=== PATIENT | male | born 1960 | race Caucasian/White ===

== ENCOUNTER → 2017-04-16 | Outpatient (CLI) | payer BC ==
[~2017-04-16] MED LIST: BUPR150T6 PO; CYCL10TA2 PO; ESOM40CA PO; HYDR-2666 PO; LOSA50TA6 PO; MECL-51 PO; METF500T4 PO; OMEP20CA9 PO; SERT50TA8 PO; TAMS0.4C2 PO; TRAM-29 PO
--- NOTE | 2017-04-16 09:53 | KCIC ---
EXAM: Bilateral knees, 3 views. HISTORY: Pain. COMPARISON: None. FINDINGS: Frontal, lateral and oblique views of both knees are obtained. There is sclerosis within the right medial femoral condyle, the appearance of which favors avascular necrosis. There is no fracture, dislocation or subluxation. No significant effusion is seen. 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 No cortical collapse is seen. Electronically signed by: Rebeca Wilkerson MD (04/16/2017 9:50 AM)
== END | disposition home or self-care (01) ==
LOC: KCIC 09:17
PROVIDERS: ATTEND Family Medicine
DX: M25.561 Pain in right knee (principal); M25.562 Pain in left knee; I96 Gangrene, not elsewhere classified
CPT/HCPCS: 73562

== ENCOUNTER → 2017-04-30 | Outpatient (CLI) | payer BC ==
[~2017-04-30] MED LIST changes: -HYDR-2666 PO; +HYDR-2758 PO; -TRAM-29 PO; +TRAM-48 PO
--- NOTE | 2017-04-30 14:22 | KCIC ---
[facility] ART STUDY LOWER EXTREM SCARLET History: Claudication greater on the left, smoker, diabetes, hypertension Comparison: None. Findings: Ankle brachial indices were obtained. Right ARELIS was 1.07, left 1.01. Impression: 1. Ankle brachial indices are considered within normal limits bilaterally. Electronically signed by: Tha Lemons MD (04/30/2017 2:19 PM)
== END | disposition home or self-care (01) ==
LOC: KCIC US 12:52
PROVIDERS: ATTEND Orthopaedic Surgery Sports Medicine
DX: I73.9 Peripheral vascular disease, unspecified (principal); F17.200 Nicotine dependence, unspecified, uncomplicated; I10 Essential (primary) hypertension; E11.9 Type 2 diabetes mellitus without complications
CPT/HCPCS: 93922

== ENCOUNTER → 2017-08-17 | Outpatient (CLI) | payer BC ==
[~2017-08-17] MED LIST changes: +ATOR20TA58 PO; +IOHEXOL 180 MG/ML 10 ML VIAL. ONE; +methylPREDNISolone ACETATE 40 MG/ML VIAL. ONE; +methylPREDNISolone ACETATE 80 MG/ML VIAL. ONE
--- NOTE | 2017-08-17 11:55 | PAIN ---
DATE OF SERVICE: 08/17/2017 DIAGNOSES: 1. Cervical radiculopathy with cervical degenerative disk disease. 2. Lumbar radiculopathy with lumbar degenerative disk disease and post-lumbar laminectomy syndrome. HISTORY OF PRESENT ILLNESS: The patient is a 57-year-old male who returns for followup status post cervical epidural steroid injections x 2 in 09/2016. The patient did very well and reports about 90% improvement. Neck is still doing well. His main complaint is low back and left lower extremity pain. He has had some significant pain over the years. He has had 2 lumbar surgeries with fusion, with increasing pain now over the past few months in the low back and left lower extremity, mostly posterior gluteus, posterior thigh on the left side, posterior calf, with some numbness and tingling, burning, stabbing and becoming more constant. Worse with standing, walking, changing positions, but has been awakening him from sleep, almost every night over the past 2-3 weeks. The patient reports it has been getting worse with activity, better with sitting or lying down, but again waking up from sleep. The patient reports it is 7 on a scale of 10 at its worst, 6 on average, is about 4 at least, and is a 5 on a scale of 10 today. The patient reports no new motor or sensory deficits, no new bowel or bladder incontinence or other complaints. PAST MEDICAL HISTORY: Significant for type 2 diabetes, COPD, sleep apnea, hypertension, cigarette smoking, arthritis. PREVIOUS SURGERIES: Include laminectomy x 2, lumbar; bilateral shoulder surgery; and finger reattachment in the past. CURRENT MEDICATIONS: Updated and well-documented on the patient's chart. ALLERGIES: The patient has no known drug allergies. FAMILY HISTORY: Significant for no major medical problems he is aware of. SOCIAL HISTORY: The patient drinks about 2-3 alcoholic drinks a week on an average; smokes cigarettes, less than 1 pack a day for about 39 years. The patient is and lives with his spouse. No children at home, lives locally. REVIEW OF SYSTEMS: The patient's review of systems is positive for those items mentioned in history of present illness. All systems reviewed and otherwise negative. It is complete, full and well documented on the patient's chart. PHYSICAL EXAMINATION: VITAL SIGNS: Today, the patient's blood pressure is 157/91, pulse 56, respirations 18, temperature 98.1 degrees Fahrenheit. Height is 5 feet 11 inches, weight is 279 pounds. GENERAL: The patient is awake, alert, oriented, appropriate, has very pleasant demeanor. HEENT: Shows normocephalic, atraumatic. Extraocular movements are intact and symmetrical. Oral cavity shows mucous membranes moist and pink. Dentition is intact. NECK: Shows anterior throat supple without palpable lymphadenopathy noted. Swallow reflex is symmetrical. CHEST: Shows normal on inspection. Breath sounds are clear to auscultation bilaterally. HEART: Shows S1 and S2 clear. No murmurs auscultated. ABDOMEN: Obese, with soft, nontender, nondistended. No palpable organomegaly noted. No rebound or guarding demonstrated. BACK: Shows spine grossly in the midline. Well-healed surgical scar is noted in the lumbar distribution with some flattening of lumbar lordotic curvature. Cervical lordotic curvatures shows normal on inspection. With palpation, shows only very minimal tenderness in the inferior aspect of the cervical paraspinous musculature, otherwise is symmetrical. Full rotational motion of cervical spine is demonstrated without difficulty. Low back shows good rotation, both laterally as well as extension and flexion, with somewhat limited extension, but not secondary to pain. Forward flexion about 45 degrees without pain reported in any of these rotations. EXTREMITIES: Lower extremities showed deep tendon reflexes 1+ in the patellar and tendo calcaneus tendons, are equal. Motor exam is strong with 5/5 dorsiflexion, extension, quadriceps and hamstring flexion, and are symmetrical as well. Peripheral pulses are 1+ posterior tibial and dorsalis pedis pulses. No peripheral edema is noted. RECOMMENDATIONS: Options were discussed with the patient. The patient's old chart was reviewed, as his current medication regimen updated. Current review of systems updated today as well. We will proceed with a caudal approach of epidural steroid injection with fluoroscopic guidance today. Risks were again discussed including, but not limited to bleeding, infection, possibility of epidural hematoma, subsequent neurologic compromise, dural puncture, headaches, spinal cord and/or nerve damage, side effects of steroid medication and poor results regarding pain control. The patient understands and wishes to proceed. The patient will return to clinic in approximately 2 weeks for followup. He was counseled on return appointment, activity level and side effects to be aware of. DIAGNOSES: 1. Cervical radiculopathy with cervical degenerative disk disease. 2. Lumbar radiculopathy with lumbar degenerative disk disease and lumbar post-laminectomy syndrome. PROCEDURE: Caudal approach of epidural steroid injection using C-arm fluoroscopic guidance under sterile prep and drape using local anesthetic. Medication injected is a total of 120 mg Depo-Medrol plus 10 mL of preservative-free normal saline and 2 mL of Isovue for contrast. CONDITION AT DISCHARGE: Stable. The patient tolerated procedure well, had no complications. RAVINDER ARANDA MD DR: EYAL/salima JOB#: [id number] / [id number]
== END | disposition home or self-care (01) ==
LOC: PNCL 08:23
PROVIDERS: ATTEND Anesthesiology
DX: M51.16 Intervertebral disc disorders with radiculopathy, lumbar region (principal); M50.10 Cervical disc disorder with radiculopathy, unspecified cervical region; E11.9 Type 2 diabetes mellitus without complications; J44.9 Chronic obstructive pulmonary disease, unspecified; G47.30 Sleep apnea, unspecified; I10 Essential (primary) hypertension; F17.210 Nicotine dependence, cigarettes, uncomplicated; M19.90 Unspecified osteoarthritis, unspecified site
CPT/HCPCS: 62323; J1030; J1040

== ENCOUNTER → 2017-08-31 | Outpatient (CLI) | payer BC ==
--- NOTE | 2017-08-31 12:17 | PAIN ---
DATE OF SERVICE: 08/31/2017 PROGRESS NOTE FOR PAIN CLINIC DIAGNOSES: 1. Cervical radiculopathy with cervical degenerative disk disease. 2. Lumbar radiculopathy with lumbar degenerative disk disease and post-lumbar laminectomy syndrome. HISTORY OF PRESENT ILLNESS: The patient is a 57-year-old male who returns for followup status post caudal epidural steroid injection x 1. The patient reports only about 1-2 days of decreased pain by about 50% and the pain returned fairly quickly in the low back and left lower extremity. The patient reports it is a 6-7 on a scale of 10 at its worst, 4 at least and is 5 today. The patient reports shooting becoming more constant in the left low back, posterior gluteus, posterior thigh on the left side with some numbness in the posterior lateral left leg and the top of the foot and the anterior aspect. The patient reports no new motor or sensory deficits. This has been awakening him from sleep fairly often when he lies on his left side especially. No new motor or sensory deficits. No new bowel or bladder incontinence or other complaints. PHYSICAL EXAMINATION: VITAL SIGNS: Today, the patient's blood pressure 169/85, pulse 68, respirations are 18, temperature 98.3 degrees Fahrenheit, height is 5 feet 11 inches and weight is 276 pounds. GENERAL: The patient is awake, alert, oriented, appropriate and very pleasant demeanor. HEENT: Shows normocephalic and atraumatic. Extraocular movements are intact and symmetrical. Oral cavity shows mucous membranes moist and pink. Dentition is intact. NECK: Shows anterior throat supple without palpable lymphadenopathy noted. Swallow reflex is symmetrical. CHEST: Shows normal on inspection. Breath sounds clear to auscultation bilaterally. HEART: Shows S1 and S2 clear. ABDOMEN: Soft, nontender and nondistended. Obese but no rebound or guarding demonstrated. BACK: The patient's back shows spine grossly in the midline, some flattening noted of the lumbar lordotic curvature, a well-healed surgical scar in this region. Lumbar paraspinous musculature shows symmetrical on inspection, with palpation shows moderate tenderness bilaterally but only diffusely in the lower lumbar distribution without radiation. EXTREMITIES: Lower extremities showed deep tendon reflexes 1+ in the patellar and tendo-calcaneus tendons, are equal. Motor exam is approximately 5/5 with dorsiflexion, extension, quadriceps and hamstring flexion and equal and symmetrical. Options were discussed with the patient and the patient's old chart was reviewed as his current medication regimen updated. Current review of systems updated today as well. We will proceed today with a caudal approach epidural steroid injection with fluoroscopic guidance. Risks were again discussed including but not limited to bleeding, infection, possibility of epidural hematoma and subsequent neurologic compromise, dural puncture, headaches, spinal cord and/or nerve damage, side effects of steroid medication and poor results regarding pain control. The patient understands and wishes to proceed. The patient will return to clinic in approximately 2 weeks for followup, was counseled on return appointment, activity level and side effects to be aware of. DIAGNOSES: Lumbar radiculopathy with lumbar degenerative disk disease and post-lumbar laminectomy syndrome. PROCEDURE: Lumbar epidural steroid injection, caudal approach and using C-arm fluoroscopic guidance under sterile prep and drape using local anesthetic. MEDICATION INJECTED: A total of 120 mg Depo-Medrol plus 10 mL of preservative-free normal saline and 2 mL of Isovue for contrast. CONDITION AT DISCHARGE: Stable. The patient tolerated procedure well, had no complications. RAVINDER ARANDA MD DR: EYAL/salima JOB#: [id number] / [id number]
== END | disposition home or self-care (01) ==
LOC: PNCL 07:58
PROVIDERS: ATTEND Anesthesiology
DX: M51.16 Intervertebral disc disorders with radiculopathy, lumbar region (principal); M96.1 Postlaminectomy syndrome, not elsewhere classified; M50.30 Other cervical disc degeneration, unspecified cervical region
CPT/HCPCS: 62323; J1030; J1040

== ENCOUNTER → 2017-09-29 | Outpatient (CLI) | payer BC ==
[~2017-09-29] MED LIST changes: -IOHEXOL 180 MG/ML 10 ML VIAL. ONE; -methylPREDNISolone ACETATE 40 MG/ML VIAL. ONE; -methylPREDNISolone ACETATE 80 MG/ML VIAL. ONE
--- NOTE | 2017-09-29 11:50 | KCIC ---
FINGER(S) RIGHT History: Infection of finger Comparison: None. Findings: 3 views of the right hand with attention to the third digit are submitted. No aggressive bone destruction, acute fracture, or radiopaque foreign body is identified of the third digit of the right hand. Impression: 1. No acute osseous abnormality is identified. Electronically signed by: Tha Lemons MD (09/29/2017 11:47 AM) [id number]
== END | disposition home or self-care (01) ==
LOC: KCIC 08:30
PROVIDERS: ATTEND Family Medicine
DX: L08.89 Other specified local infections of the skin and subcutaneous tissue (principal)
CPT/HCPCS: 73140

== ENCOUNTER → 2017-10-15 | Outpatient (CLI) | payer BC ==
[~2017-10-15] MED LIST changes: +IOHEXOL 180 MG/ML 10 ML VIAL. ONE; +methylPREDNISolone ACETATE 40 MG/ML VIAL. ONE; +methylPREDNISolone ACETATE 80 MG/ML VIAL. ONE
--- NOTE | 2017-10-15 19:18 | PAIN ---
DATE OF SERVICE: 10/15/2017 DIAGNOSES: 1. Cervical radiculopathy with cervical degenerative disk disease. 2. Lumbar radiculopathy with lumbar degenerative disk disease and post-lumbar laminectomy syndrome. HISTORY OF PRESENT ILLNESS: The patient is a 57-year-old male who returns for followup status post caudal epidural steroid injection x 2. The patient reports about 70% improvement overall, but weaning fairly quickly, only lasting about a week or so. The patient reports pain is returning in the low back, bilateral lower extremities, radiating to posterior gluteus, posterior thighs, worse slightly on the left than the right with tingling, burning and constant pain. It is becoming more unbearable and more constant with shooting pain in the lower extremities, again bilaterally, left worse than right. The patient reports the pain is a 8 on a scale of 10 at its worst, 7 on average and a 5 at its least and is 7 today. The patient reports no new motor or sensory deficits, no new bowel or bladder incontinence. Worse with standing and walking, changing positions, bending or stooping. Better with sitting, better with lying down. It does not awaken him from sleep at night. He is sleeping about 8 hours at a time without difficulty. PHYSICAL EXAMINATION: VITAL SIGNS: Today, the patient's blood pressure 170/95, pulse 77, respirations 18, temperature 98.0 degrees Fahrenheit, height is 5 feet 11 inches, weight is 280 pounds. GENERAL: The patient is awake, alert, oriented, appropriate, very pleasant demeanor. HEENT: Head shows normocephalic, atraumatic. Extraocular movements are intact, symmetrical. Oral cavity: Mucous membranes moist and pink. Dentition is intact. NECK: Shows anterior throat supple without palpable lymphadenopathy noted. Swallow reflex is symmetrical. CHEST: Shows normal on inspection. Breath sounds clear to auscultation bilaterally. HEART: Shows S1, S2 clear. No murmurs auscultated. ABDOMEN: Obese, soft, nontender, nondistended. No palpable organomegaly is noted. No rebound or guarding demonstrated. BACK: Shows spine grossly in the midline. Slight exaggeration of thoracic kyphosis ____ flattening of lumbar lordotic curvature as well with well healed surgical scarring noted. Lumbar paraspinous muscle shows symmetrical on inspection, with palpation shows some [id number] tenderness with palpation bilaterally, but only diffusely in the low lumbar distribution without trigger points, without radiation. No tenderness over the sacrum or sacroiliac regions. EXTREMITIES: Lower extremities show deep tendon reflexes 1+ in the patellar and tendo calcaneus tendons. Motor exam is 5/5 with dorsiflexion, extension, quadriceps and hamstring flexion and equal. Peripheral pulses are 1+ posterior tibial. No peripheral edema is noted. Options were discussed with the patient. The patient's old chart was reviewed. His current medication regimen updated. Current review of systems updated today as well and we will proceed with a third in the series of caudal approach epidural steroid injection with fluoroscopic guidance. Risks were again discussed including, but not limited to bleeding, infection, possibility of epidural hematoma, subsequent neurologic compromise, dural puncture, headaches, spinal cord and/or nerve damage, side effects of steroid medication and poor results regarding pain control. The patient understands and wished to proceed. The patient will return to clinic in approximately 2 weeks for followup, was counseled as to return appointment, activity level and side effects to be aware of and we will see him. DIAGNOSIS: Lumbar radiculopathy with lumbar degenerative disk disease, post-lumbar laminectomy syndrome. PROCEDURE: Caudal approach epidural steroid injection under local anesthetic using sterile prep and drape with C-arm fluoroscopy. MEDICATION INJECTED: A total of 120 mg Depo-Medrol plus 10 mL preservative-free normal saline and 2 mL isovue for contrast. CONDITION AT DISCHARGE: Stable. The patient tolerated the procedure well, had no complications. RAVINDER ARANDA MD DR: EYAL/salima JOB#: [id number] / [id number]
== END | disposition home or self-care (01) ==
LOC: PNCL 08:01
PROVIDERS: ATTEND Anesthesiology
DX: M51.16 Intervertebral disc disorders with radiculopathy, lumbar region (principal); M96.1 Postlaminectomy syndrome, not elsewhere classified; M50.10 Cervical disc disorder with radiculopathy, unspecified cervical region
CPT/HCPCS: 62323; J1030; J1040

== ENCOUNTER → 2018-01-19 | Outpatient (CLI) | payer BC | END | disposition home or self-care (01) | LOC: MRI 11:09 | DX: M48.061 Spinal stenosis, lumbar region without neurogenic claudication (principal); M51.26 Other intervertebral disc displacement, lumbar region; E88.2 Lipomatosis, not elsewhere classified | CPT/HCPCS: 72148 ==

== ENCOUNTER → 2018-06-07 | Outpatient (CLI) | payer BC ==
[~2018-06-07] MED LIST changes: -ATOR20TA58 PO; -BUPR150T6 PO; -CYCL10TA2 PO; -ESOM40CA PO; -HYDR-2758 PO; +IOHEXOL 180 MG/ML 10 ML VIAL.; -IOHEXOL 180 MG/ML 10 ML VIAL. ONE; +LIDOCAINE 1% PF 2 ML VIAL.; -LOSA50TA6 PO; -MECL-51 PO; -METF500T4 PO; -OMEP20CA9 PO; -SERT50TA8 PO; -TAMS0.4C2 PO; -TRAM-48 PO; +methylPREDNISolone ACETATE 40 MG/ML VIAL.; -methylPREDNISolone ACETATE 40 MG/ML VIAL. ONE; +methylPREDNISolone ACETATE 80 MG/ML VIAL.; -methylPREDNISolone ACETATE 80 MG/ML VIAL. ONE
== END | disposition home or self-care (01) ==
LOC: PNCL 07:50
DX: M51.16 Intervertebral disc disorders with radiculopathy, lumbar region (principal); M48.061 Spinal stenosis, lumbar region without neurogenic claudication; M96.1 Postlaminectomy syndrome, not elsewhere classified; M50.10 Cervical disc disorder with radiculopathy, unspecified cervical region
CPT/HCPCS: 62323; J1030; J1040; Q9965

== ENCOUNTER → 2018-09-09 | Outpatient (CLI) | payer BC ==
[~2018-09-09] MED LIST changes: +ATOR20TA58 PO; +BUPR150T6 PO; +CYCL10TA2 PO; +ESOM40CA PO; +HYDR-2758 PO; -IOHEXOL 180 MG/ML 10 ML VIAL.; +IOHEXOL 180 MG/ML 10 ML VIAL. ONE; -LIDOCAINE 1% PF 2 ML VIAL.; +LIDOCAINE 1% PF 2 ML VIAL. ONE; +LOSA50TA7 PO; +MECL-51 PO; +METF500T16 PO; +OMEP20CA9 PO; +SERT50TA8 PO; +TAMS0.4C2 PO; +TRAM-48 PO; -methylPREDNISolone ACETATE 40 MG/ML VIAL.; +methylPREDNISolone ACETATE 40 MG/ML VIAL. ONE; -methylPREDNISolone ACETATE 80 MG/ML VIAL.; +methylPREDNISolone ACETATE 80 MG/ML VIAL. ONE
--- NOTE | 2018-09-09 22:40 | PAIN ---
DATE OF SERVICE: 09/09/2018 PROGRESS NOTE FOR PAIN CLINIC DIAGNOSES: 1. Cervical radiculopathy with cervical degenerative disk disease. 2. Lumbar radiculopathy with lumbar degenerative disk disease and post-lumbar laminectomy syndrome. HISTORY OF PRESENT ILLNESS: The patient is a 58-year-old male who return for followup status post caudal epidural steroid injection x 1 on 06/11/2018. The patient did well for a few weeks after this, but not nearly as well as he had done with previous injections. He did his neurosurgeon, Dr. Cj Tran, who did a new myelogram and he said the results of that is showing some narrowing at L3-L4 with somewhat L4-L5 also, disk protrusion on the left side L5-S1, but did not recommend any current surgical indications at this time, would like him to try more conservative measures for considering this. The patient returns complaining of pain in the low back, bilateral lower extremities, right greater than left, posterior gluteus, posterior thigh, posterior calves and lateral thigh on the right as well. The patient reports it is aching, sharp, tingling, burning, cramping, stabbing, becoming more constant, more unbearable with any weightbearing, standing, walking, changing positions; better at night or laying down. It does awaken him from sleep Occasionally. The patient reports the patient is 9 on a scale of 10 at its worst, 8 on an average, 7 at least and is 7 today. The patient reports no new motor or sensory deficits. No new bowel or bladder incontinence. PHYSICAL EXAMINATION: VITAL SIGNS: Blood pressure 172/102, pulse 67, respirations 18, temperature 98.1 degrees Fahrenheit. He weighs 277 pounds. GENERAL: The patient is awake, alert, oriented, appropriate, very pleasant demeanor. HEENT: Head is normocephalic, atraumatic. Extraocular movements intact and symmetrical. Oral cavity, mucous membranes moist and pink, dentition is intact. NECK: Anterior throat supple without palpable lymphadenopathy noted. Swallow reflex is symmetrical. CHEST: Normal on inspection. Breath sounds are clear to auscultation bilaterally. HEART: Shows S1, S2 clear. No murmurs auscultated. ABDOMEN: Obese, soft, nontender, nondistended, no palpable organomegaly is noted. No rebound or guarding demonstrated. BACK: Spine grossly in the midline. Normal-appearing thoracic kyphosis. Some minor flattening of lumbar lordotic curvature. Well-healed surgical scarring noted. Lumbar paraspinous motion shows symmetrical on inspection, on palpation it shows some moderate tenderness diffusely in the low lumbar distribution but only diffusely and equal bilaterally. The patient shows no sensory deficits with rotation of motion. No significant tenderness with extension, flexion right and left lateral rotation. EXTREMITIES: Lower extremity shows deep tendon reflexes 1+ in the patellar and tendo-calcaneus tendons. Motor is 5/5 with dorsiflexion, extension, quadriceps and hamstrings flexion and symmetrical. Peripheral pulses are 1+ in posterior tibia. No peripheral edema is noted bilaterally. Options were discussed with the patient. The patient's old chart was reviewed as well as his current medication regimen updated. Current review of systems updated today as well. We will proceed with a second in the series of lumbar epidural steroid injections today with fluoroscopic guidance. Risks were again discussed including, but not limited to bleeding, infection, possibility of epidural hematoma and subsequent neurologic compromise, dural puncture headache, spinal cord and/or nerve damage, side effects of steroid medication and poor results regarding pain control. The patient understands and wished to proceed. The patient will return to clinic in approximately 2 weeks for followup, was counseled as to return appointment, activity level and side effects to be aware of. DIAGNOSES: 1. Lumbar radiculopathy with lumbar degenerative disk disease. 2. Lumbar post laminectomy syndrome. PROCEDURE: Lumbar epidural steroid injection, translaminar approach, L5-S1 level using C-arm fluoroscopic guidance under sterile prep and drape using local anesthetic. MEDICATION INJECTED: A total of 120 mg Depo-Medrol plus 10 mL of preservative-free normal saline and 2 mL of Isovue for contrast. CONDITION AT DISCHARGE: Stable. The patient tolerated the procedure well and had no complications. RAVINDER ARANDA MD DR: EYAL/salima JOB#: [id number] / [id number]
== END | disposition home or self-care (01) ==
LOC: PNCL 07:33
PROVIDERS: ATTEND Anesthesiology
DX: M51.16 Intervertebral disc disorders with radiculopathy, lumbar region (principal); M96.1 Postlaminectomy syndrome, not elsewhere classified; M50.30 Other cervical disc degeneration, unspecified cervical region
CPT/HCPCS: 62323; J1030; J1040; Q9965

== ENCOUNTER → 2018-12-28 | Outpatient (CLI) | payer BC ==
[~2018-12-28] MED LIST changes: -HYDR-2758 PO; +HYDR-2761 PO; -LIDOCAINE 1% PF 2 ML VIAL. ONE; +LOSA-73 PO; -LOSA50TA7 PO
--- NOTE | 2018-12-28 08:59 | PAIN ---
DATE OF SERVICE: 12/28/2018 DIAGNOSES: Lumbar radiculopathy with lumbar degenerative disk disease and lumbar post-laminectomy syndrome. HISTORY OF PRESENT ILLNESS: The patient is a 58-year-old male who returns for followup status post lumbar epidural steroid injection x 2, most recently on 09/09/2018. The patient did very well with about a 75% improvement initially, now about 50-6% improvement, still doing well. The patient reports he was almost pain free for about a month and then in the past 3 months has been doing very well with about a 60% improvement overall. The patient reports still some pain in the lower extremities, right greater than left bilaterally, mostly the posterior gluteus, posterior thigh, radiating to posterior calves and feet. The patient reports it is aching, sharp, shooting, tingling, constant, becoming more noticeable, more severe. The patient reports the pain is 7 on a scale of 10 at its worst, 6 on average, 5 at its least and is a 5 today. The patient reports no new motor or sensory deficits, no new bowel or bladder incontinence, still significant pain in the low back and legs as noted. Again, the patient was increasing just walking, doing work activities, household activities with greater ease and comfort, traveling in a car, sleeping better at night, still does not awaken him from sleep, and he is doing much better. PHYSICAL EXAMINATION: VITAL SIGNS: The patient's blood pressure 167/98, pulse 64, respirations 16, temperature 98.2 degrees Fahrenheit, weight is 277 pounds. GENERAL: The patient is awake, alert, oriented, appropriate, very pleasant demeanor. HEENT: Head shows normocephalic, atraumatic. Extraocular movements are intact and symmetrical. Oral cavity: Mucous membranes moist and pink. Dentition is intact. NECK: Shows anterior throat supple without palpable lymphadenopathy noted. Swallow reflex symmetrical. CHEST: Shows normal on inspection. Breath sounds clear to auscultation bilaterally. HEART: Shows S1 and S2 clear. No murmurs auscultated. ABDOMEN: Soft, obese, nontender, nondistended. No palpable organomegaly is noted. No rebound or guarding demonstrated. BACK: The patient's back shows spine grossly in the midline. Slight exaggeration of thoracic kyphosis and minor flattening of lumbar lordotic curvature. Lumbar paraspinous muscle shows symmetrical on inspection, with palpation shows some moderate tenderness only diffusely in the low lumbar distribution bilaterally without radiation. He shows good rotational motion of lumbar spine, both laterally as well as extension and flexion without difficulty. EXTREMITIES: Lower extremities show deep tendon reflexes 1+ in the patellar and tendo-calcaneus tendons are equal. Motor exam is strong with 5/5 dorsiflexion, extension bilaterally. Peripheral pulses are 1+ posterior tibial. No peripheral edema is noted. Options were discussed with the patient. The patient's old chart was reviewed, as his current medication regimen updated. Current review of systems updated today as well. We will proceed with a third in the series of lumbar epidural steroid injection today with fluoroscopic guidance. Risks were again discussed including, but not limited to bleeding, infection, possibility of epidural hematoma, subsequent neurological compromise, dural puncture, headaches, spinal cord and/or nerve damage, side effects of steroid medication and poor results regarding pain control. The patient understands and wished to proceed. The patient to return to clinic in approximately 2 weeks for followup, was counseled on return appointment, activity level and side effects to be aware of. DIAGNOSES: Lumbar radiculopathy with lumbar degenerative disk disease, post-lumbar laminectomy syndrome. PROCEDURE: Lumbar epidural steroid injection, translaminar approach L5-S1 level using C-arm fluoroscopic guidance under sterile prep and drape using local anesthetic. MEDICATION INJECTED: A total of 120 mg Depo Medrol, plus 10 mL of preservative-free normal saline and 2 mL of Isovue for contrast. CONDITION AT DISCHARGE: Stable. The patient tolerated procedure well, had no complications. RAVINDER ARANDA MD DR: EYAL/salima JOB#: [id number] / [id number]
== END | disposition home or self-care (01) ==
LOC: PNCL 07:42
PROVIDERS: ATTEND Anesthesiology
DX: M51.16 Intervertebral disc disorders with radiculopathy, lumbar region (principal); M96.1 Postlaminectomy syndrome, not elsewhere classified
CPT/HCPCS: 62323; J1030; J1040; Q9965

== ENCOUNTER → 2019-02-09 | Outpatient (CLI) | payer BC ==
[~2019-02-09] MED LIST changes: +OMEP20CA10 PO; -OMEP20CA9 PO
--- NOTE | 2019-02-10 00:28 | PAIN ---
DATE OF SERVICE: 02/09/2019 DIAGNOSES: 1. Cervical radiculopathy with cervical degenerative disk disease. 2. Lumbar radiculopathy with lumbar degenerative disk disease, post-lumbar laminectomy syndrome. HISTORY OF PRESENT ILLNESS: The patient is a 58-year-old male who returns for followup status post lumbar epidural steroid injections, most recently on 12/28/2018. The patient did well with this initially about 50% improvement, but the pain has retuned now significantly in the low back, bilateral lower extremities, somewhat worse on the right than the left, posterior gluteus, posterior thighs, posterior calves, again worse on the right side. The patient reports it is worse with standing, walking, changing positions, better with sitting or lying down, does not awaken him from sleep frequently, but does occasionally. The patient reports the pain is 8 on a scale of 10 at its worst, 7 on average, 6 at its least and is a 7 today. The patient reports it is tingling, burning, stabbing, aching, tight, constant and radiating as described. The patient reports no new motor or sensory deficits, no new bowel or bladder incontinence. PHYSICAL EXAMINATION: VITAL SIGNS: The patient's blood pressure 141/81, pulse 84, respirations 20, temperature 98.2 degrees Fahrenheit, weight is 268 pounds. GENERAL: The patient is awake, alert, oriented, appropriate, very pleasant demeanor. HEENT: Head shows normocephalic, atraumatic. Extraocular movements are intact and symmetrical. Oral cavity: Mucous membranes moist and pink. Dentition is intact. NECK: Shows anterior throat supple without palpable lymphadenopathy noted. Swallow reflex symmetrical. CHEST: Shows normal on inspection. Breath sounds clear to auscultation bilaterally. HEART: Shows S1, S2 clear. No murmurs auscultated. ABDOMEN: Soft, obese, nontender, nondistended. No palpable organomegaly is noted. No rebound or guarding demonstrated. BACK: Shows spine grossly in the midline. Normal appearing thoracic kyphosis and lumbar lordotic curvature. Lumbar paraspinous muscle shows symmetrical on inspection. On palpation shows some moderate tenderness diffusely bilaterally. Well-healed surgical scarring is again noted. No radiation is demonstrated with palpation. EXTREMITIES: The patient's lower extremities showed deep tendon reflexes 1+ in the patellar and tendo-calcaneus tendons. Motor exam is strong with 5/5 dorsiflexion, extension, quadriceps and hamstring flexion and symmetrical as well. Peripheral pulses are 1+ posterior tibia. No peripheral edema is noted bilaterally. Options were discussed with the patient. The patient's old chart was reviewed as his current medication regimen updated. Current review of systems updated today as well. We will proceed with a first in this series of lumbar epidural steroid injection today with fluoroscopic guidance. Risks were again discussed including, but not limited to bleeding, infection, possibility of epidural hematoma, subsequent neurologic compromise, dural puncture, headaches, spinal cord and/or nerve damage, side effects of steroid medication and poor results regarding pain control. The patient understands and wished to proceed. The patient to return to clinic in approximately 2 weeks for followup. He was counseled as to return appointment, activity level and side effects to be aware of. DIAGNOSES: Lumbar radiculopathy with lumbar degenerative disk disease, post-lumbar laminectomy syndrome. PROCEDURE: Lumbar epidural steroid injection, translaminar approach at L5-S1 level using C-arm fluoroscopic guidance under sterile prep and drape using local anesthetic. MEDICATION INJECTED: A total of 120 mg Depo-Medrol plus 10 mL of preservative-free normal saline and 2 mL of contrast. CONDITION AT DISCHARGE: Stable. The patient tolerated the procedure well, had no complications. RAVINDER ARANDA MD DR: EYAL/salima JOB#: [id number] / [id number]
== END | disposition home or self-care (01) ==
LOC: PNCL 08:02
PROVIDERS: ATTEND Anesthesiology
DX: M51.16 Intervertebral disc disorders with radiculopathy, lumbar region (principal); M96.1 Postlaminectomy syndrome, not elsewhere classified; M50.10 Cervical disc disorder with radiculopathy, unspecified cervical region
CPT/HCPCS: 62323; J1030; J1040; Q9965

== ENCOUNTER → 2019-03-22 | Outpatient (CLI) | payer BC ==
--- NOTE | 2019-03-23 00:24 | PAIN ---
DATE OF SERVICE: 03/22/2019 PROGRESS NOTE FOR PAIN CLINIC DIAGNOSES: 1. Lumbar radiculopathy with lumbar degenerative disk disease, post-lumbar laminectomy syndrome. 2. Cervical radiculopathy with cervical degenerative disk disease. HISTORY OF PRESENT ILLNESS: The patient is a 59-year-old male who returns for followup status post lumbar epidural steroid injection x 1 on 02/09/2019. The patient reports did better initially, but overall the pain has only been educed at about 25%. Initially, the first week or so, it was about 50%-75% better in the low back and especially the right leg, but he is having pain returned in the low back, bilateral lower extremities, posterior gluteus, posterior thighs, posterior calves; worse on the right in the low back but described as tingling, burning, aching, dull, alternating with sharp pain, shooting pain in the lower extremities becoming more constant, more unbearable with activity. The patient reports it is better with sitting or lying down, does not awaken him from sleep at night but is worse with walking and standing, even prolonged sitting or traveling in a car. The patient reports his pain is a 10 on scale of 10 at its worst, 9 on average and 8 at its least over the past week and is an 8 today. The patient reports no new motor or sensory deficits and no new bowel or bladder incontinence or other complaints. PHYSICAL EXAMINATION: VITAL SIGNS: The patient's blood pressure is 146/81, pulse 67, respirations 18 and temperature 98.5 degrees Fahrenheit. Height is 5 feet 11 inches and weight is 267 pounds. GENERAL: The patient is awake, alert, oriented, appropriate and very pleasant demeanor. HEENT: Head shows normocephalic and atraumatic. Extraocular movements are intact and symmetrical. Oral cavity: Mucous membranes moist and pink. Dentition is intact. NECK: Shows anterior throat supple without palpable lymphadenopathy noted. Swallow reflex symmetrical. CHEST: Shows normal on inspection. Breath sounds clear to auscultation bilaterally. HEART: Shows S1 and S2 clear. No murmurs auscultated. ABDOMEN: Soft, nontender and nondistended. No palpable organomegaly is noted. No rebound or guarding demonstrated. BACK: Shows spine grossly in the midline. Normal appearing thoracic kyphosis. Some flattening of lumbar lordotic curvature with well-healed surgical scar noted. Lumbar paraspinous muscle shows symmetrical on inspection, with palpation shows some moderate tenderness diffusely bilaterally but only diffusely without radiation. The patient has good rotational motion of lumbar spine, both laterally as well as extension and flexion without significant difficulty or pain reported. EXTREMITIES: The patient's lower extremities show deep tendon reflexes at 1+ in the patellar and tendo-calcaneus tendons are equal. Motor exam is strong with 5/5 dorsiflexion, extension, quadriceps and hamstring flexion symmetrical. Peripheral pulses are 1+ posterior tibia. No peripheral edema is noted. Options were discussed with the patient. The patient's old chart was reviewed as well as his current medication regimen updated. Current review of systems updated today as well and we will proceed with the second in the series of lumbar epidural steroid injection today with fluoroscopic guidance. Risks were again discussed including, but not limited to bleeding, infection, possibility of epidural hematoma, subsequent neurological compromise, dural puncture, headaches, spinal cord and/or nerve damage, side effects of steroid medication and poor results regarding pain control. The patient understands and wished to proceed. The patient will return to the clinic in approximately 2 weeks for followup, was counseled as to return appointment, activity level and side effects to be aware of. DIAGNOSES: Lumbar radiculopathy with lumbar degenerative disk disease and post-lumbar laminectomy syndrome. PROCEDURE: Lumbar epidural steroid injection, translaminar approach at L5-S1 level using C-arm fluoroscopic guidance under sterile prep and drape using local anesthetic. MEDICATION INJECTED: A total of 120 mg Depo-Medrol plus 10 mL of preservative-free normal saline and 2 mL of contrast. CONDITION AT DISCHARGE: Stable. The patient tolerated the procedure well, had no complications. RAVINDER ARANDA MD DR: EYAL/salima JOB#: [id number] / [id number]
== END | disposition home or self-care (01) ==
LOC: PNCL 11:21
PROVIDERS: ATTEND Anesthesiology
DX: M51.16 Intervertebral disc disorders with radiculopathy, lumbar region (principal); M96.1 Postlaminectomy syndrome, not elsewhere classified; M50.10 Cervical disc disorder with radiculopathy, unspecified cervical region
CPT/HCPCS: 62323; J1030; J1040; Q9965

== ENCOUNTER → 2019-04-14 | Outpatient (CLI) | payer BC ==
[~2019-04-14] MED LIST changes: -IOHEXOL 180 MG/ML 10 ML VIAL. ONE; -methylPREDNISolone ACETATE 40 MG/ML VIAL. ONE; -methylPREDNISolone ACETATE 80 MG/ML VIAL. ONE
--- NOTE | 2019-04-14 09:07 | KCIC ---
MRI Lumbar Spine without contrast History: Lumbar radiculopathy, previous surgeries, chronic low back pain, bilateral extremity numbness Technique: Multiplanar, multi sequential noncontrast MR imaging was performed of the lumbar spine. Comparison: January 19, 2018 Findings: Lumbar vertebral body stature is maintained. There is grade 1 anterior spondylolisthesis L5-S1 somewhat increased. There is again more advanced degenerative disc disease greater posteriorly L5-S1, minimal degenerative disc disease at L3-4 mild disc desiccation L4-5 and L2-3. Conus terminates near T12-L1. There is no significant marrow edema. There is hemangioma of the right L4 vertebral body. There is degenerative endplate change L5-S1. L1-L2: Spinal canal and neural foramina are adequate, this level not included on the axial images. L2-L3: There is again left laminectomy defect. There is right greater than left facet hypertrophic change and prominence of posterior epidural fat. Spinal canal and neural foramina are adequate. L3-L4: There is again left laminectomy defect. There is again facet hypertrophic change. There is minimal disc osteophyte complex and bulge greater than previously, also very shallow broad extrusion extending slightly below the intervertebral disc space about 2 mm AP. There is indentation upon the ventral thecal sac somewhat greater in the far left lateral recess, increased mild to moderate narrowing of the far lateral recess with degree of contact of the descending left L4 nerve root, also overall mild narrowing of the far right lateral recess. Below the intervertebral disc space level, there is again [id number] narrowing of the spinal canal primarily from posteriorly by facet hypertrophic change. There is mild to moderate left and mild right neural foramina compromise in part from disc osteophyte complex in combination with facet degenerative change. L4-L5: There is again prominence of posterior epidural fat centrally and moderate facet hypertrophic change. There is negligible disc osteophyte complex. Spinal canal is not significantly narrowed. There is mild narrowing of the left neural foramen, also disc osteophyte complex near the extraforaminal left L4 nerve root without displacement. There is increased moderate narrowing of the right neural foramen primarily from posteriorly by facet in combination with a new 0.4 cm synovial cyst at the posterior superior margin of the distal neural foramen. L5-S1: There is again severe facet degenerative change. There is left laminectomy defect as seen previously. There is partial uncovering of the posterior aspect of the disc with a superimposed minimal disc osteophyte complex as seen previously. Spinal canal is overall adequate. There is again severe narrowing of the right neural foramen with contact of the exiting right L5 nerve root, also fairly severe narrowing of the left neural foramen with contact exiting left L5 nerve root. Impression: 1. Comparing with the January 2018 exam, there is increased moderate narrowing of the right L4-5 neural foramen in part by synovial cyst. There is again severe neural foramina compromise bilaterally at L5-S1. There is bhob-[id number] narrowing of the left L3-4 neural foramen, other minimal narrowing as stated. 2. There is increased mild to moderate narrowing of the far left lateral recess at L3-4, mild narrowing of the far right lateral recess at this level. There is now shallow broad extrusion extending slightly below the L3-4 intervertebral disc space. There is again nyzq-kl-cfzarmys spinal stenosis just below the L3-4 intervertebral disc space level from posteriorly by facet hypertrophic change and ligamentum flavum. 3. There is again grade 1 anterior spondylolisthesis L5-S1. There is degenerative disc disease greatest at L5-S1. Electronically signed by: Tha Lemons MD (04/14/2019 9:04 AM) [facility]
== END | disposition home or self-care (01) ==
LOC: KCIC MRI 08:12
PROVIDERS: ATTEND Family Medicine
DX: M48.061 Spinal stenosis, lumbar region without neurogenic claudication (principal); M71.38 Other bursal cyst, other site; M51.26 Other intervertebral disc displacement, lumbar region; M43.17 Spondylolisthesis, lumbosacral region; M51.17 Intervertebral disc disorders with radiculopathy, lumbosacral region
CPT/HCPCS: 72148

== ENCOUNTER → 2019-11-20 | Outpatient (CLI) | payer BC ==
[~2019-11-20] MED LIST changes: +IOHEXOL 240 MG/ML 50ML VIAL. PO ONE; +IOHEXOL 300 MG/ML 100ML VIAL. IV ONE; -OMEP20CA10 PO; +OMEP20CA16 PO
--- NOTE | 2019-11-20 12:50 | KCIC ---
EXAM: Cervical spine, 4 views. HISTORY: Pain. COMPARISON: None. FINDINGS: 4 views of the cervical spine are obtained. There is no listhesis. The vertebral bodies are normal in height. There is anterior endplate osteophytosis throughout the cervical spine. There is multilevel facet arthropathy. IMPRESSION: 1. No acute osseous finding. 2. Multilevel degenerative change. Electronically signed by: Rebeca Wilkerson MD (11/20/2019 12:47 PM) [facility]
--- NOTE | 2019-11-20 12:55 | KCIC ---
EXAM: Abdomen and pelvis CT with intravenous contrast. HISTORY: Generalized pain. TECHNIQUE: Computed tomographic images of the abdomen and pelvis were obtained following the administration of 100 cc Omnipaque 300 intravenous contrast. Multiplanar reformatting was performed. *One or more of the following individualized dose reduction techniques were utilized for this examination: 1. Automated exposure control. 2. Adjustment of the mA and/or kV according to patient size. 3. Use of iterative reconstruction technique. COMPARISON: None. FINDINGS: Evaluation of the lower thorax demonstrates lingular and right middle lobe atelectasis or scarring. There is a large calcified granuloma within the lateral right lower lobe. There is no infiltrate or pleural effusion. The heart is normal in size. There is hepatic steatosis and hepatomegaly. There is a suspected tiny cyst within the right hepatic lobe, too small to characterize. The gallbladder, pancreas, and adrenal glands are unremarkable. The spleen is mildly enlarged and contains a calcified granuloma. There is a tiny left lateral renal cortical cyst which is too small to characterize. There is no appendicitis. There is distal colonic diverticulosis without diverticulitis. There is no evidence of bowel obstruction. There is aortobiiliac atherosclerosis. There is increased fat within the inguinal canals. There is no suspicious osseous lesion. There is grade 1 anterolisthesis and advanced degenerative change at L5-S1. IMPRESSION: 1. Hepatomegaly and hepatic steatosis. 2. Mild splenomegaly. 3. Colonic diverticulosis. Electronically signed by: Rebeca Wilkerson MD (11/20/2019 12:52 PM) [facility]
== END | disposition home or self-care (01) ==
LOC: KCIC CT 09:58
PROVIDERS: ATTEND Nurse Practitioner Gerontology
DX: K57.30 Diverticulosis of large intestine without perforation or abscess without bleeding (principal); N28.1 Cyst of kidney, acquired; I70.8 Atherosclerosis of other arteries; J84.10 Pulmonary fibrosis, unspecified; K76.0 Fatty (change of) liver, not elsewhere classified; R16.0 Hepatomegaly, not elsewhere classified; R16.1 Splenomegaly, not elsewhere classified; M25.78 Osteophyte, vertebrae; M12.88 Other specific arthropathies, not elsewhere classified, other specified site; M47.812 Spondylosis without myelopathy or radiculopathy, cervical region; J44.9 Chronic obstructive pulmonary disease, unspecified; I10 Essential (primary) hypertension; F17.200 Nicotine dependence, unspecified, uncomplicated; E11.9 Type 2 diabetes mellitus without complications; Z79.84 Long term (current) use of oral hypoglycemic drugs; Z79.899 Other long term (current) drug therapy
CPT/HCPCS: 72040; 74177; 82565; Q9966; Q9967

== ENCOUNTER → 2019-12-07 | Outpatient (CLI) | payer BC ==
[~2019-12-07] MED LIST changes: -IOHEXOL 240 MG/ML 50ML VIAL. PO ONE; -IOHEXOL 300 MG/ML 100ML VIAL. IV ONE
--- NOTE | 2019-12-07 11:33 | KCIC ---
MRI of the cervical spine without contrast 12/07/2019 CLINICAL HISTORY: Neck pain with right arm pain. TECHNIQUE: Unenhanced T1-weighted, T2-weighted and inversion recovery sagittal and gradient echo and T2-weighted axial images of the cervical spine were obtained. FINDINGS: Comparison is made to radiographs of cervical spine dated 11/20/2019 Minimal lateral curvature of the cervical spine is seen convex to the left. There is straightening of the normal cervical lordosis. Degenerative signal changes are seen involving all of the disks of the cervical spine. Degenerative signal changes are seen within the marrow surrounding these discs. Loss of height of the C6-7 disc is noted. No area of abnormal signal intensity is seen involving the cervical spinal cord. At the C2-3 disc space there is a mild generalized disc bulge. Degenerative changes are seen involving the uncovertebral and facet joints bilaterally. These findings do not result in significant central spinal canal or neural foraminal stenosis. At the C3-4 disc space there is a mild to moderate generalized disc bulge. Degenerative changes are seen involving the uncovertebral and facet joints, right greater than left. These findings when combined do not result in significant central spinal canal stenosis. Mild to moderate right greater than left neural foraminal stenosis is seen. At the C4-5 disc space there is a mild generalized disc bulge. Superimposed on this disc bulge is a focal central disc protrusion. This measures 3 mm in AP diameter. Degenerative changes are seen involving the uncovertebral and facet joints, right greater than left. These findings do not result in significant central spinal canal stenosis. Mild right greater than left neural foraminal stenosis is seen. At the C5-6 disc space there is a mild generalized disc bulge. Degenerative changes are seen involving the uncovertebral and facet joints bilaterally. These findings do not result in significant central spinal canal or neural foraminal stenosis. At the C6-7 disc space there is a mild to moderate generalized disc bulge. This is eccentric to the right. These findings efface the anterior CSF without resulting in significant central spinal canal stenosis. Moderate to severe right greater than left neural foraminal stenosis is seen. At the C7-T1 disc space there is a minimal generalized disc bulge. Degenerative changes are seen involving the facet joints bilaterally. These findings do not result in significant central spinal canal or neural foraminal stenosis. IMPRESSION: Degenerative changes are seen throughout the cervical spine. These findings do not result in significant central spinal canal stenosis at any level. Mild to moderate right greater than left neural foraminal stenosis is seen at C3-4. Mild right greater than left neural foraminal stenosis is seen at C4-5. Moderate to severe right greater than left neural foraminal stenosis is seen at C6-7. Electronically signed by: Terrance Trevino MD (12/07/2019 11:30 AM) [facility]
== END | disposition home or self-care (01) ==
LOC: KCIC MRI 09:45
PROVIDERS: ATTEND Nurse Practitioner Gerontology
DX: M47.22 Other spondylosis with radiculopathy, cervical region (principal); M50.11 Cervical disc disorder with radiculopathy, high cervical region; M51.24 Other intervertebral disc displacement, thoracic region; M47.814 Spondylosis without myelopathy or radiculopathy, thoracic region; M48.02 Spinal stenosis, cervical region
CPT/HCPCS: 72141

== ENCOUNTER → 2019-12-20 | Outpatient (CLI) | payer BC ==
[~2019-12-20] MED LIST changes: +IOHEXOL 180 MG/ML 10 ML VIAL. ONE; +methylPREDNISolone ACETATE 40 MG/ML VIAL. ONE; +methylPREDNISolone ACETATE 80 MG/ML VIAL. ONE
--- NOTE | 2019-12-20 12:17 | PAIN ---
DATE OF SERVICE: 12/20/2019 PROGRESS NOTE FOR PAIN CLINIC DIAGNOSES: 1. Cervical radiculopathy with cervical degenerative disk disease and cervical spinal stenosis. 2. Lumbar radiculopathy with lumbar degenerative disk disease and lumbar post-laminectomy syndrome. HISTORY OF PRESENT ILLNESS: The patient is a 59-year-old male, who returns for followup status post lumbar epidural steroid injection and caudal injections, last seen in 01/2019. The patient did very well with the injections, but has had surgery in the lumbar spine since the last visit. The patient reports doing much better with his lumbar spine; however, his main complaint is neck and right upper extremity pain he had many years ago. The patient did have MRI scan of cervical spine which we reviewed with him today that is dated 12/07/2019 showing some significant severe right greater than left neural foraminal stenosis at the C6-C7 level, disk bulge throughout C4-C5, C5-C6 and C6-C7 with severe right greater than left neural foraminal stenosis at the C6-C7 level. The patient reports significant pain in the right upper extremity radiating into the hand and the thumb and first finger with numbness and tingling described as becoming more constant, aching, shooting, tight and dull in the neck as well. The patient reports it is worse with walking, using upper extremity, but has not had any motor loss or dropping of items with the right hand. The patient reports it awakens him from sleep occasionally, but most nights, it is better with lying down, worse with raising his right hand over his head at repetitive motions. The patient reports it is 7 on a scale of 10 at its worst, 7 on average, 6 at its least and is a 7 today. The patient reports no new motor or sensory deficits, no bowel or bladder incontinence. PHYSICAL EXAMINATION: VITAL SIGNS: The patient's blood pressure is 139/81, pulse 63, respirations 18, temperature is 98.2 degrees Fahrenheit, height is 5 feet 10 inches and weight is 272 pounds. GENERAL: The patient is awake, alert, oriented, appropriate, very pleasant demeanor. HEENT: Head shows normocephalic, atraumatic. Extraocular movements are intact and symmetrical. Oral cavity: Mucous membranes moist and pink; dentition is intact. NECK: Shows anterior throat supple without palpable lymphadenopathy noted. Swallow reflex symmetrical. CHEST: Shows normal on inspection. Breath sounds are clear bilaterally. HEART: Shows S1, S2 clear. No murmurs auscultated. ABDOMEN: Obese, soft, nontender, nondistended. BACK: Shows spine grossly in the midline, normal-appearing cervical lordotic curvature and thoracic kyphotic curvature, some moderate flattening of lumbar lordotic curvature. Well-healed surgical scarring noted. Cervical paraspinous musculature shows symmetrical on inspection, on palpation shows some moderate tenderness diffusely bilaterally, only diffusely without significant radiation. The patient has good rotational motion of cervical spine, both laterally as well as extension and flexion without significant pain reported. EXTREMITIES: Upper extremities show deep tendon reflexes 1+ in the biceps and triceps tendons. Motor exam is strong with materials tech strength rated at 5/5 as is biceps and triceps flexion without significant pain or limitation. No motor loss is noted. Shoulder shrug is strong and intact without loss of strength on resistance as is abduction of shoulder to 90 degrees with some minor pain in the base of the neck on the right side with resistance, but no loss of strength. Peripheral pulses are 2+ radial. No peripheral edema is noted. Options were discussed with the patient. The patient's old chart was reviewed as his current medication regimen updated. Current review of systems updated today as well. We will proceed with a cervical epidural steroid injection today with the first in this series with fluoroscopic guidance. Risks were again discussed including, but not limited to bleeding, infection, possibility of epidural hematoma, subsequent neurological compromise, dural puncture, headaches, spinal cord and/or nerve damage, side effects of steroid medication and poor results regarding pain control. The patient understands and wished to proceed. The patient will return to clinic in approximately 2 weeks for followup. He was counseled as to the return appointment, activity level and side effects to be aware of. DIAGNOSIS: Cervical radiculopathy with cervical degenerative disk disease and cervical spinal stenosis. PROCEDURE: Cervical epidural steroid injection, translaminar approach, C6-C7 level, using C-arm fluoroscopic guidance under sterile prep and drape using local anesthetic. MEDICATIONS INJECTED: A total of 120 mg Depo-Medrol plus 5 mL of preservative-free normal saline and 2 mL of contrast. CONDITION AT DISCHARGE: Stable. The patient tolerated the procedure well, had no complications. RAVINDER ARANDA MD DR: EYAL/salima JOB#: [id number] / [id number]
== END | disposition home or self-care (01) ==
LOC: PNCL 07:52
PROVIDERS: ATTEND Anesthesiology
DX: M50.123 Cervical disc disorder at C6-C7 level with radiculopathy (principal); M51.16 Intervertebral disc disorders with radiculopathy, lumbar region; M48.02 Spinal stenosis, cervical region; M48.061 Spinal stenosis, lumbar region without neurogenic claudication; M96.1 Postlaminectomy syndrome, not elsewhere classified; Z98.890 Other specified postprocedural states
CPT/HCPCS: 62321; J1030; J1040; Q9965

== ENCOUNTER → 2020-01-03 | Outpatient (CLI) | payer BC ==
--- NOTE | 2020-01-03 09:15 | PAIN ---
DATE OF SERVICE: 01/03/2020 PROGRESS NOTE FOR PAIN CLINIC DIAGNOSES: 1. Cervical radiculopathy with cervical degenerative disk disease and cervical spinal stenosis. 2. Lumbar radiculopathy with lumbar degenerative disk disease and post-lumbar laminectomy syndrome. HISTORY OF PRESENT ILLNESS: The patient is a 59-year-old male who returns for followup status post cervical epidural steroid injection x 1. The patient reports about 78% improvement in the pain, still has some numbness and tingling in the right arm and shoulder, but the pain is much improved. The patient reports he has increased his activity with greater ability to do repetitive motions of the right upper extremity, reaching over his head with greater ease, sleeping better, does not awaken him from sleep at this time. The patient reports his pain is a 5 on a scale of 10 at its worst over the past week, 4 on average, 3 at its least and is a 4 today. The patient reports tingling and radiating with numbness in the arm, but no significant pain. The patient reports no loss of motor function, but easy fatigability of the right upper extremity as previously. The patient reports no new motor or sensory deficits or other complaints. PHYSICAL EXAMINATION: VITAL SIGNS: The patient's blood pressure 122/77, pulse 67, respirations 16, temperature 98.1 degrees Fahrenheit, weight is 271 pounds. GENERAL: The patient is awake, alert, oriented, appropriate, very pleasant demeanor. HEENT: Head shows normocephalic, atraumatic. Extraocular movements are intact and symmetrical. Oral cavity: Mucous membranes moist and pink. Dentition is intact. NECK: Shows anterior throat supple. CHEST: Shows normal on inspection. Breath sounds are clear bilaterally. HEART: Shows S1, S2 clear. ABDOMEN: Obese but soft, nontender, nondistended. BACK: Shows spine grossly in the midline. Cervical paraspinous muscle shows symmetrical on inspection, with normal-appearing cervical lordotic curvature. With palpation, some moderate tenderness diffusely in the inferior aspect of the cervical paraspinous muscles, but only very diffusely and only very mildly. The patient has full rotational motion of cervical spine, both laterally as well as extension and flexion without significant increase in pain. EXTREMITIES: The patient's upper extremities show deep tendon reflexes at 2+ in the biceps and triceps tendons. 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 Peripheral pulses are 2+ radial distribution. No peripheral edema is noted bilaterally. Options were discussed with the patient. The patient's old chart was reviewed as his current medication regimen updated. Current review of systems updated today as well. We will proceed with a second in the series of cervical epidural steroid injection today with fluoroscopic guidance. Risks were again discussed including, but not limited to bleeding, infection, possibility of epidural hematoma, subsequent neurological compromise, dural puncture, headaches, spinal cord and/or nerve damage, side effects of steroid medication and poor results regarding pain control. The patient understands and wished to proceed. The patient will return to clinic in approximately 2 weeks for followup. She was counseled on return appointment, activity level and side effects to be aware of. DIAGNOSES: Cervical radiculopathy with cervical degenerative disk disease and cervical spinal stenosis. PROCEDURE: Cervical epidural steroid injection, translaminar approach C6-C7 level using C-arm fluoroscopic guidance under sterile prep and drape using local anesthetic. MEDICATION INJECTED: A total of 120 mg Depo-Medrol plus 5 mL preservative-free normal saline and 2 mL of contrast. CONDITION AT DISCHARGE: Stable. The patient tolerated procedure well, had no complications. RAVINDER ARANDA MD DR: EYAL/salima JOB#: [id number] / [id number]
== END ==
LOC: PNCL 08:01
PROVIDERS: ATTEND Anesthesiology
DX: M50.123 Cervical disc disorder at C6-C7 level with radiculopathy (principal); M51.16 Intervertebral disc disorders with radiculopathy, lumbar region; M96.1 Postlaminectomy syndrome, not elsewhere classified; M48.02 Spinal stenosis, cervical region
CPT/HCPCS: 62321; J1030; J1040; Q9965

== ENCOUNTER → 2020-06-10 | Outpatient (CLI) | payer BC ==
[~2020-06-10] MED LIST changes: +BUPIVACAINE MPF 0.25% 10 ML VIAL. ONE; -methylPREDNISolone ACETATE 40 MG/ML VIAL. ONE
--- NOTE | 2020-06-10 10:38 | PAIN ---
DATE OF SERVICE: 06/10/2020 PROGRESS NOTE FOR PAIN CLINIC DIAGNOSES: 1. Cervical radiculopathy with cervical degenerative disk disease and cervical spinal stenosis. 2. Lumbar radiculopathy with lumbar degenerative disk disease and post-lumbar laminectomy syndrome. 3. Right shoulder joint pain with osteoarthritis. HISTORY OF PRESENT ILLNESS: The patient is a 60-year-old male who returns for followup status post cervical epidural steroid injection, most recently 01/03/2020. The patient reports he did very well with about 90% improvement, still currently helpful in the neck and shoulders. The patient reports his chief complaint today is left shoulder pain. He has had surgery on his shoulders arthroscopic both of them in the past about 10-12 years ago. Reports it is similar how it felt prior to that surgery, but he is hoping to get some pain relief before seeing his orthopedic surgeon. The patient reports the pain in his left shoulder is 10 on a scale of 10 at its worst in the last week, 7 on average, 6 at its least and is a 7 today. The patient reports it is constant, aching, sharp, shooting in the shoulder itself, but not connected to the neck and no difficulty with rotational motion of the neck, no increase in symptoms with extension or flexion of the neck. The patient reports it is causing his left arm to be weak. He has difficult time abducting it and doing household activities. The patient reports no new motor or sensory deficits, but significant pain in the left shoulder, again getting worse for about the past 1-2 months. PHYSICAL EXAMINATION: VITAL SIGNS: The patient's blood pressure 119/79, pulse 71, respirations are 20, temperature is 98.3 degrees Fahrenheit, weight is 270 pounds. GENERAL: The patient is awake, alert, oriented, appropriate, very pleasant demeanor. HEENT: Exam shows normocephalic, atraumatic. Extraocular movements are intact and symmetrical. Oral cavity shows mucous membranes moist and pink. Dentition is intact. NECK: Shows anterior throat supple without palpable lymphadenopathy noted. Swallow reflex symmetrical. CHEST: Shows normal on inspection. Breath sounds are clear bilaterally. HEART: Shows S1, S2 clear. No murmurs auscultated. ABDOMEN: Obese, soft, nontender, nondistended. BACK: Shows spine grossly in the midline. Normal cervical lordotic curvature and some minor increase in thoracic kyphosis. The patient's cervical paraspinous muscle shows symmetrical on inspection, with palpation shows some moderate tenderness diffusely bilaterally, but only diffusely without significant radiation. The patient has good rotational motion of the cervical spine, both laterally as well as extension and flexion without significant increase in pain. EXTREMITIES: Upper extremities show deep tendon reflexes 2+ in the biceps and triceps tendons. Motor exam is 5/5 water team leader strength, bicep and tricep flexion. The patient's left shoulder shows well-healed surgical scarring as does the right with abduction is very tender past 90 degrees and with resistance even more tender in the anterior and posterior aspect of the shoulder with resistance. Shoulder shrug is strong and intact again with pain on the left with resistance, but without loss of strength on resistance. The patient's shoulder shows no palpable masses. No crepitus or ratcheting with both active and passive rotation. Peripheral pulses are 2+ radial. No peripheral edema is noted. Options were discussed with the patient. The patient's old chart was reviewed as his current medication regimen updated. Current review of systems updated today as well. We will proceed with a left intra-articular shoulder joint injection today with fluoroscopic guidance. Risks were discussed including but not limited to bleeding, infection, possibility of intravascular injection sequelae, spread of local anesthetic and numbness, side effects of steroid medication as well as exposure to fluoroscopy and poor results regarding pain control. The patient understands and wished to proceed. The patient will return to clinic in approximately 2 weeks for followup. He was counseled on return appointment, activity level and side effects to be aware of. DIAGNOSIS: Left shoulder joint pain with osteoarthritis, left shoulder joint. PROCEDURE: Left intra-articular shoulder joint injection glenohumeral joint under sterile prep and drape using local anesthetic. MEDICATION INJECTED: A total of 80 mg Depo-Medrol plus 3 mL of 0.25% bupivacaine, 1.5 mL of contrast. CONDITION AT DISCHARGE: Stable. The patient tolerated the procedure well, had no complications. RAVINDER ARANDA MD DR: EYAL/salima JOB#: [id number] / [id number]
== END | disposition home or self-care (01) ==
LOC: PNCL 08:56
PROVIDERS: ATTEND Anesthesiology
DX: M19.012 Primary osteoarthritis, left shoulder (principal); M51.16 Intervertebral disc disorders with radiculopathy, lumbar region; M50.10 Cervical disc disorder with radiculopathy, unspecified cervical region; M48.02 Spinal stenosis, cervical region; Z79.899 Other long term (current) drug therapy
CPT/HCPCS: 20610; 77002; J1040; J3490; Q9965

== ENCOUNTER → 2021-05-27 | Outpatient (CLI) | payer BC ==
[~2021-05-27] MED LIST changes: -BUPIVACAINE MPF 0.25% 10 ML VIAL. ONE; +BUPR150T21 PO; -BUPR150T6 PO; -IOHEXOL 180 MG/ML 10 ML VIAL. ONE; +SERT-267 PO; -SERT50TA8 PO; -methylPREDNISolone ACETATE 80 MG/ML VIAL. ONE
--- NOTE | 2021-05-27 15:32 | KCIC ---
EXAM: Lumbar spine MRI without contrast. HISTORY: Back pain. Radiculopathy. TECHNIQUE: Multiplanar, multisequence magnetic resonance imaging of the lumbar spine was performed wi thout contrast. COMPARISON: 04/14/2019 FINDINGS: There is mild lumbar scoliosis. There is grade 1 anterolisthesis of L5 on S1, measuring abd omen. There is degenerative endplate remodeling with disc space narrowing and osteophytosis primarily at L5-S1. There is additional endplate remodeling at the remainder of the lumbar levels. There are f ew small endplate Schmorl's nodes. There is disc desiccation at multiple levels. There are few osseou s hemangiomas. There is no fracture or suspicious osseous lesion. The conus terminates at T12-L1. The re is prominent dorsal epidural fat at the lower lumbar levels, contributing to effacement of the the leydi sac. At L1-L2, there is anterior predominant endplate remodeling. There is no stenosis. At L2-L3, there is a disc bulge and right anterior predominant endplate osteophytosis. There is no st enosis. At L3-L4, there are left hemilaminectomy changes. There is a shallow broad-based posterior central di sc protrusion and formed and inferior extrusion superimposed on a disc bulge and endplate osteophytos is. There is moderate bilateral facet arthropathy. There is mild right and severe left foraminal sten osis with abutment the exiting left greater than right L3 nerve root. There is moderate central canal stenosis. At L4-L5, there is a shallow broad-based left foraminal to extra foraminal disc protrusion and annula r tear superimposed on a disc bulge and endplate remodeling. There is moderate to severe bilateral fa cet arthropathy. There is hypertrophy of the ligamentum flavum. There is prominent epidural fat. Ther e is moderate bilateral foraminal stenosis with abutment of the exiting left and right L4 nerve roots . There is moderate to severe central canal stenosis. At L5-S1, there are left hemilaminectomy changes. There is a disc bulge and endplate osteophytosis. T here is severe bilateral facet arthropathy. There is grade 1 anterolisthesis. There is prominent epid ural fat. There is severe bilateral foraminal stenosis with abutment the exiting L5 nerve roots. Ther e is mild canal stenosis. IMPRESSION: 1. Multilevel degenerative change throughout the lumbar spine, described in detail above. This is ass ociated with mild right and severe left foraminal and moderate central canal stenosis at L3-L4, moder ate bilateral foraminal and moderate to severe central canal stenosis at L4-L5, and severe bilateral foraminal and mild central canal stenosis at L5-S1. These findings are similar compared to the prior study, allowing for differences in technique. 2. Left hemilaminectomy changes at L3-L4 and L5-S1. 3. Grade 1 anterolisthesis of L5 on S1 and lumbar scoliosis. 4. 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 Electronically signed by: Rebeca Wilkerson MD (05/27/2021 3:30 PM) [id number]
== END ==
LOC: KCIC MRI 10:07
PROVIDERS: ATTEND Family Medicine
DX: M47.27 Other spondylosis with radiculopathy, lumbosacral region (principal); M51.16 Intervertebral disc disorders with radiculopathy, lumbar region; M43.17 Spondylolisthesis, lumbosacral region; M48.07 Spinal stenosis, lumbosacral region; D18.09 Hemangioma of other sites; M51.46 Schmorl's nodes, lumbar region; M41.86 Other forms of scoliosis, lumbar region; M25.78 Osteophyte, vertebrae; Z98.890 Other specified postprocedural states
CPT/HCPCS: 72148

== ENCOUNTER → 2021-08-01 | Outpatient (CLI) | payer BC ==
[~2021-08-01] MED LIST changes: +BUPIVACAINE MPF 0.25% 10 ML VIAL. ONE; +IOHEXOL 180 MG/ML 10 ML VIAL. ONE; +methylPREDNISolone ACETATE 80 MG/ML VIAL. ONE
--- NOTE | 2021-08-01 11:37 | PDOC ---
Progress Note - Pain Clinic Date of Service: DOS: DATE: 08/01/21 TIME: 11:33 Diagnosis: Dx: Lumbar radiculopathy with lumbar degenerative disc disease lumbar postlaminectomy syndrome Cervical radiculopathy with cervical degenerative disc disease and cervical spinal stenosis Left shoulder joint pain with osteoarthritis History or Present Illness: HPI: 61-year-old male returns status post left shoulder joint injection last seen June 10, 2020 patient has since had lumbar surgery June 13 of this year which she reports helped with her right leg but the left leg is not been significantly very do states pain has the significant pain since the surgery in the left posterior gluteus posterior thigh posterior calf into the foot when he bends or moves or stands for more than about 20 minutes patient reports is worse with walking standing changing positions better with sitting or laying down but has been waking from sleep over the past 3 to 4 weeks patient reports his right leg is doing much better after the surgery the left leg is still significantly painful described as aching and sharp tingling burning in the leg shooting in the left lower extremity as well as in the low back itself patient rates as 8 on scale 10 is worse over the past week 7 on average 5 its least a 7 today. Patient has followed up with his neurosurgeon who he reports has informed him to give it more time. Patient reports is becoming more significant and more severe also with weakness in the leg and he is stumbled but not fallen several times in the last month as well and is wishing to have the pain reduced. Patient reports no bowel or bladder incontinence Physical Exam: VS: Blood pressure is 140/83 pulse 75 respirations are 16 temperature is 98.8 F height is 5 foot 11 inches weight is 270 pounds PE: PHYSICAL EXAMINATION: GENERAL: The patient is awake, alert, oriented, appropriate, very pleasant in demeanor HEENT: Shows normocephalic, atraumatic. Extraocular movements are intact and symmetrical. Oral cavity: Mucous membranes moist and pink. Dentition is intact. NECK: Shows anterior throat supple without palpable lymphadenopathy noted. Swallow reflex symmetrical. CHEST: Shows normal on inspection. Breath sounds are clear bilaterally, distant no rales rhonchi wheezes auscultated. HEART: Shows S1, S2 clear. No murmurs auscultated. ABDOMEN: Soft, nontender, nondistended, obese. No palpable organomegaly is noted. BACK: Shows spine grossly in the midline. Normal-appearing cervical lordotic curvature. There is slightly increased thoracic kyphosis, some minor flattening of the lumbar lordotic curvature. Well-healed midline surgical scar is noted. Lumbar paraspinous muscles show symmetrical on inspection, on palpation shows some moderate tenderness diffusely throughout the upper, middle and lower distribution of the paraspinous muscles bilaterally and also into the lower thoracic paraspinous musculature, firm and tender, but without specific trigger points, without radiation of pain. The patient has good rotational motion of the lumbar spine, both laterally as well as extension and flexion without significant difficulty. No tenderness over the spinous processes, sacrum or sacroiliac regions. EXTREMITIES: Lower extremities show deep tendon reflexes 2+ in the patellar and tendo calcaneus tendons. Motor exam is 5 on a scale of 5 with right dorsiflexion, extension, quadriceps and hamstring flexion and 4/5 on the left. Peripheral pulses are 1 posterior tibial. No peripheral edema is noted bilaterally. Lower extremities are warm and dry to touch, equal in color and appearance. SKIN: Shows warm and dry, good turgor. No edema. No sores, rashes or bruising throughout. Procedure: Procedure: Options discussed with the patient. Patient told chart was reviewed, his current medication regimen updated, and current review of systems updated today as well. We will proceed with a left L5-S1 transforaminal lumbar epidural steroid injection today with fluoroscopic guidance. Risks were discussed including but not limited to: Bleeding, infection, possibility of epidural hematoma and subsequent neurological compromise, dural puncture, headaches, spinal cord and/or nerve damage, potential injection of vertebral artery that level and permanent ischemic damage, side effects of steroid medication, and poor results regarding pain control. Patient understands and wished to proceed. Patient will return to clinic in approximate 2 weeks for follow-up, was counseled as return appointment, activity level, and side effects beware of. Medication Injected: Med Injected: Under sterile prep and drape patient was placed in prone position using C-arm fluoroscopic guidance to identify the L5-S1 distribution oblique and slightly c ephalad angled C arm. The left L5-S1 target was identified and using lidocaine for anesthetizing the skin 22-gauge Adelina pencil point needle was then used to enter the skin and into the subcutaneous tissues using direct C-arm fluoroscopic guidance to guide the needle into the transforaminal aspect of the left L5-S1 vertebrae this was confirmed with lateral views showing the needle tip in the superior aspect of the paravertebral region. Aspiration was noted to be negative, -1.5 cc of contrast was then injected with good spread both medially into the epidural space as well as laterally along the nerve root without uptake and without distribution and uptake on digital subtraction. At this time, a solution containing 2 cc of 0.25% bupivacaine and 80 mg of Depo- Medrol was then injected. Needle was withdrawn and sterile bandage was applied. Patient tolerated procedure well had no immediate complications Condition at Discharge: Condition at Discharge: Condition at discharge is stable, patient already procedure well and had no complications. RAVINDER ARANDA MD Aug 01, 2021 11:37
--- NOTE | 2021-08-01 11:38 | PDOC4 ---
Procedure Note: ICD 10 Code: ICD 10 Code: M54.17 M51.87 M 96.1 Procedure Note: Patient was consented for left L5-S1 transforaminal epidural steroid injection with fluoroscopic guidance. Risks were discussed including but not limited to: Bleeding, infection, possibility of epidural hematoma and subsequent neurologica l compromise, dural puncture, headaches, spinal cord and/or nerve damage, potential injection into the vertebral artery at that level and permanent ischemic damage, side effects of steroid medication, and poor results regarding pain control. Patient understands and wished to proceed. Under sterile prep and drape patient was placed in prone position using C-arm fluoroscopic guidance to identify the L5-S1 distribution oblique and slightly cephalad angled C arm. The left L5-S1 target was identified and using lidocaine for anesthetizing the skin 22-gauge Adelina pencil point needle was then used to enter the skin and into the subcutaneous tissues using direct C-arm fluoroscopic guidance to guide the needle into the transforaminal aspect of the left L5-S1 vertebrae this was confirmed with lateral views showing the needle tip in the superior aspect of the paravertebral region. Aspiration was noted to be negative, -1.5 cc of contrast was then injected with good spread both medially into the epidural space as well as laterally along the nerve root without uptake and without distribution and uptake on digital subtraction. At this time, a solution containing 2 cc of 0.25% bupivacaine and 80 mg of Depo- Medrol was then injected. Needle was withdrawn and sterile bandage was applied. Patient tolerated procedure well had no immediate complications RAVINDER ARANDA MD Aug 01, 2021 11:38
== END | disposition home or self-care (01) ==
LOC: PNCL 10:39
PROVIDERS: ATTEND Anesthesiology
DX: M51.16 Intervertebral disc disorders with radiculopathy, lumbar region (principal); M96.1 Postlaminectomy syndrome, not elsewhere classified; M50.10 Cervical disc disorder with radiculopathy, unspecified cervical region; M48.02 Spinal stenosis, cervical region; M19.012 Primary osteoarthritis, left shoulder; Z79.84 Long term (current) use of oral hypoglycemic drugs; Z79.899 Other long term (current) drug therapy
CPT/HCPCS: 64483; J1040; J3490; Q9965

== ENCOUNTER → 2021-12-18 | Outpatient (CLI) | payer BC ==
[~2021-12-18] MED LIST changes: -BUPIVACAINE MPF 0.25% 10 ML VIAL. ONE; +CYCL10TA19 PO; -CYCL10TA2 PO; -IOHEXOL 180 MG/ML 10 ML VIAL. ONE; +IOHEXOL 240 MG/ML 50ML VIAL. PO ONE; +IOHEXOL 300 MG/ML 100ML VIAL. IV ONE; -methylPREDNISolone ACETATE 80 MG/ML VIAL. ONE
--- NOTE | 2021-12-18 15:57 | KCIC ---
PQRS Compliance Statement: One or more of the following individualized dose reduction techniques were utilized for this examinat ion: 1. Automated exposure control 2. Adjustment of the mA and/or kV according to patient size 3. Use of iterative reconstruction technique CT LOW DOSE LUNG SCREEN Clinical Indication: Reason: Lung cancer screening, smoker 40+ yrs., 1 pk/day. Comparison: None available. TECHNIQUE: Helical CT imaging of the chest is performed without IV contrast using low-dose technique. Findings: Great vessels are upper limits of normal in caliber. There is no mediastinal adenopathy. Partially ca lcified subcarinal and bilateral hilar lymph nodes. Mild coronary artery disease. Cardiac size is nor mal, no pericardial effusion. No pleural effusion is seen. There is a tiny tracheal diverticulum posteriorly on the right, image 46 of series 6. There are several calcified granulomas bilaterally. There is a 4 mm triangular-shaped n odule in the right middle lobe along the minor fissure that is probably perifissural lymph node, imag e 168, sagittal image 54. There is a large centrally calcified granuloma in the right lower lobe isis uring 1.6 cm. The visualized upper abdomen is unremarkable. Please refer to separately dictated CT abdomen and pelv is. There is degenerative endplate spurring of the thoracic spine. IMPRESSION: 1. No suspicious pulmonary nodule. Continue annual screening with low-dose CT in 12 months. 2. Mild coronary artery disease. 3. Lung RADS category 2. Electronically signed by: Moo Duran MD (12/18/2021 3:55 PM) [id number]
--- NOTE | 2021-12-18 16:12 | KCIC ---
PQRS Compliance Statement: One or more of the following individualized dose reduction techniques were utilized for this examinat ion: 1. Automated exposure control 2. Adjustment of the mA and/or kV according to patient size 3. Use of iterative reconstruction technique CT ABDOMEN+PELVIS W Clinical Indication: Reason: RLQ pain, hx. cyst to the Rt. side, umbilical hernia repair. Right-sided abdominal pain with change in bowel movements x1-2 weeks. Significant bulge in right abdomen. Comparison: CT abdomen and pelvis with contrast, November 20, 2019. Technique: Helical CT imaging of the abdomen and pelvis is performed after 100 cc of Omnipaque 300 IV contrast. Oral contrast also administered. Findings: Please refer to separately dictated low-dose CT chest. There is no consolidation in the lung bases. C ardiac size is normal. Small cyst or hemangioma in segment 8 of the liver is stable. There is mild hepatomegaly. Calcified g ranuloma in the spleen. Gallbladder, pancreas, adrenal glands, and abdominal aorta caliber are normal . There is atherosclerotic calcification of the abdominal aorta. Kidneys enhance symmetrically, no hy dronephrosis. No obvious abnormality of the stomach. There is no dilated small bowel. The appendix is normal. No co alcon wall thickening is identified. There is mild sigmoid colon diverticulosis. A ventral hernia is no t identified. No abdominal adenopathy or free fluid is seen. The urinary bladder is normal. The prostate and seminal vesicles are normal. There is suggestion of s mall bilateral fat-containing inguinal hernias. There is no pelvic free fluid. There is grade 1 anterolisthesis of L5 on S1. There is vacuum disc phenomenon at the lower lumbar spi ne. There is severe disc space narrowing of L5/S1. There is right L5 hemilaminotomy. IMPRESSION: 1. No acute abdominal or pelvic abnormality. 2. Mild hepatomegaly. 3. Mild sigmoid colon diverticulosis. Electronically signed by: Moo Duran MD (12/18/2021 4:09 PM) [id number]
== END ==
LOC: KCIC CT 13:49
PROVIDERS: ATTEND Family Medicine
DX: Z12.2 Encounter for screening for malignant neoplasm of respiratory organs (principal); I25.10 Atherosclerotic heart disease of native coronary artery without angina pectoris; J84.10 Pulmonary fibrosis, unspecified; I89.8 Other specified noninfective disorders of lymphatic vessels and lymph nodes; R16.0 Hepatomegaly, not elsewhere classified; K57.30 Diverticulosis of large intestine without perforation or abscess without bleeding; I70.0 Atherosclerosis of aorta; K76.89 Other specified diseases of liver; K40.20 Bilateral inguinal hernia, without obstruction or gangrene, not specified as recurrent; M43.16 Spondylolisthesis, lumbar region; M48.07 Spinal stenosis, lumbosacral region; M46.04 Spinal enthesopathy, thoracic region; F17.210 Nicotine dependence, cigarettes, uncomplicated
CPT/HCPCS: 71271; 74177; Q9966; Q9967

== ENCOUNTER → 2021-12-19 | Outpatient (CLI) | payer BC ==
[~2021-12-19] MED LIST changes: +GADOTERATE 7.5 MMOL/15ML VIAL. IVP ONE; -IOHEXOL 240 MG/ML 50ML VIAL. PO ONE; -IOHEXOL 300 MG/ML 100ML VIAL. IV ONE
--- NOTE | 2021-12-19 12:28 | KCIC ---
MRI LUMBAR SPINE WITHOUT AND WITH IV CONTRAST 12/19/2021 9:15 AM INDICATION: Low back pain COMPARISON: MRI lumbar spine 04/14/2019 TECHNIQUE: Multiplanar, multisequence MR imaging of the lumbar spine is performed before and after a dministration of gadolinium-based contrast. FINDINGS: There is 6 mm anterolisthesis of L5 on S1. Bilateral L5 pars defects are suspected. Vertebral body he ights are maintained. Marrow signal intensity is normal in all sequences. There is moderate disc heig ht loss L5-S1. Disc desiccation is identified from L2-L3 through L5-S1. Conus medullaris terminates a t T12-L1. Distal spinal cord signal intensity is normal in all sequences. Abdominal aorta is normal i n caliber. No suspicious retroperitoneal abnormality is identified. Mild left erector spinae musculat ure atrophy identified medially. No suspicious enhancement. L1-L2: Disc is normal in configuration. No significant facet arthropathy. No neuroforaminal or spinal canal stenosis. L2-L3: Disc is normal consideration. Mild facet arthropathy. Mild neuroforaminal stenosis. 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 L3-L4: There is a circumferential disc bulge. Moderate facet arthropathy. There may be left hemilamin ectomy changes at this level. Moderate severe bilateral neural foraminal stenosis, left or the right. There is no residual spinal canal stenosis, significant improved since prior examination since 2018. L4-L5: There is a circumferential disc bulge. There is a right central disc extrusion extending crani ally to the pedicle level of L4. There is right hemilaminectomy changes at this level. Severe facet a rthropathy. There is severe spinal canal stenosis, progressed since the prior examination. There is r ight lateral recess stenosis. L5-S1: There is uncovering of the disc secondary to anterolisthesis. Severe facet arthropathy. Modera te severe bilateral neuroforaminal stenosis. There is mass effect on left lateral recess. No spinal c anal stenosis. IMPRESSION: Post surgical changes are identified from partial laminectomy decompression at L3-L4 and L4-L5 as oly cribed in detail above. There is near right central disc extrusion at L4-L5 resulting in severe spina l canal stenosis. Electronically signed by: Cristina Hawkins MD (12/19/2021 12:25 PM) [id number]
== END ==
LOC: KCIC MRI 08:34
PROVIDERS: ATTEND Family Medicine
DX: M47.817 Spondylosis without myelopathy or radiculopathy, lumbosacral region (principal); M48.07 Spinal stenosis, lumbosacral region; M51.26 Other intervertebral disc displacement, lumbar region
CPT/HCPCS: 72158; A9575

== ENCOUNTER → 2021-12-24 | Outpatient (CLI) | payer BC ==
[~2021-12-24] MED LIST changes: +BUPIVACAINE MPF 0.25% 10 ML VIAL. ONE; +GABA600T7 PO; -GADOTERATE 7.5 MMOL/15ML VIAL. IVP ONE; +methylPREDNISolone ACETATE 80 MG/ML VIAL. ONE
--- NOTE | 2021-12-24 09:01 | PDOC ---
Progress Note - Pain Clinic Date of Service: DOS: DATE: 12/24/21 TIME: 08:53 Diagnosis: Dx: Left shoulder joint pain with osteoarthritis Cervical radiculopathy with cervical degenerative disease and cervical spinal stenosis Lumbar radiculopathy with lumbar degenerative disease and lumbar postlaminectomy History or Present Illness: HPI: 61-year-old male returns status post lumbar transforaminal injection of the left L5S1 August 01, 2021 patient reports only about 50% improvement with the pain returning fairly significantly in the low back and the left lower extremity patient have a new MRI scan which we discussed with him today showing new central disc extrusion at L4-5 resulting in severe spinal canal stenosis at that level. Patient reports his chief complaint however is left shoulder pain patient has osteoarthritis in the shoulder is had previous surgery but the pain is becoming much more noticeable with repetitive motions lifting weightbearing reaching over his head with his left arm as well as extending him from sleep at night patient reports awakens at least once or twice at night from sleep so she lays on his left side with significant aching quality tingling burning stabbing can be shooting and tight also pain in the low back which is constant aching shooting and tight on the left side as well patient reports is a 9 on scale 10 is worse with the shoulder over the past week 6 on average 4 to [place] is a 6 today. Patient reports no bowel or bladder incontinence no loss of motor function with significant fatigability of the left upper extremity and shoulder especially with reaching forward and to the side laterally with weight in his arm. Patient reports that he was lifting a bag of soft water conditioning salt approximately 75 pounds, lifting upwards and twisting to his right and noticed significant pain in his back which has not completely resolved, and this was about 3 weeks ago. Patient is planning to follow-up with his neurosurgeon regarding the new MRI findings which we discussed. Patient also complains of abdominal pain on the right side with asymmetric right lower quadrant and we reviewed his CT scan which he had just about a week ago showing no evidence of ventral hernia. We discussed patient's osteoarthritic conditions and he is taking diclofenac currently without significant improvement. We will start new medication of meloxicam 15 mg once daily, patient was given instructions well side effects beware of with the medication. Physical Exam: VS: Blood pressure is 140/76 pulse 75 respirations 18 temperature 98.7 F height 5 feet 11 inches weight 266 pounds. PE: PHYSICAL EXAMINATION: GENERAL: The patient is awake, alert, oriented, appropriate, very pleasant in demeanor HEENT: Shows normocephalic, atraumatic. Extraocular movements are intact and symmetrical. Oral cavity: Mucous membranes moist and pink. Dentition is intact. NECK: Shows anterior throat supple without palpable lymphadenopathy noted. Swallow reflex symmetrical. CHEST: Shows normal on inspection. Breath sounds are clear bilaterally, coarse but no rales or rhonchi. HEART: Shows S1, S2 clear. No murmurs auscultated. ABDOMEN: Soft, nontender, nondistended. Asymmetry in the right lower quadrant compared to the left, no palpable organomegaly is noted. No palpable hernia is detected bilaterally. No rebound or guarding demonstrated. BACK: Shows spine grossly in the midline. Normal-appearing cervical lordotic curvature. There is increased thoracic kyphosis, some flattening of the lumbar lordotic curvature. Lumbar paraspinous muscles show symmetrical on inspection, on palpation shows some moderate tenderness diffusely throughout the upper, middle and lower distribution of the paraspinous muscles without specific trigger points, without radiation of pain. The patient has good rotational motion of the lumbar spine, both laterally as well as extension and flexion without significant difficulty. No tenderness over the spinous processes, sacrum or sacroiliac regions. EXTREMITIES: Lower extremities show deep tendon reflexes 2+ in the patellar and tendo calcaneus tendons. Motor exam is 5 on a scale of 5 with right dorsiflexio n, extension, quadriceps and hamstring flexion and 4/5 on the left. Peripheral pulses are 1 posterior tibial. No peripheral edema is noted bilaterally. Lower extremities are warm and dry to touch, equal in color and appearance. 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 Shoulder shrug strong intact without loss of strength on resistance with abduction show significant tenderness on the left with resistance past 45 degrees right side is nontender. Peripheral pulses are 2+ radial. SKIN: Shows warm and dry, good turgor. No edema. No sores, rashes or bruising throughout. Procedure: Procedure: Options discussed with patient. Patient's old chart was reviewed his current medication regimen updated current review of systems updated today as well. We will proceed with a left intra-articular shoulder joint injection today with fluoroscopic guidance. Risks are discussed including but not limited to bleeding infection possibility of intravascular injection sequelae spread of local anesthetic numbness side effects of steroid medications post arthroscopy portals regarding pain control. Patient understands wishes to proceed. Patient return to clinic in approximately 4 weeks for follow-up, was counseled as to return appointment, activity level, and side effect to be aware of. Medication Injected: Med Injected: Patient supine position under sterile prep and drape using C-arm fluoroscopic guidance patient's left shoulder was visualized and using 25-gauge needle 1% lidocaine was used to topically anesthetized area over the glenohumeral joint on the left. Using a 22-gauge Quincke needle with stylette the joint was entered under direct fluoroscopic visualization without difficulty stylet was removed at this time 2 cc of contrast was injected with good intra-articular spread in the shoulder joint without uptake. At this time 3 cc of 0.25% bupivacaine and 80 mg Depo-Medrol was then injected into the joint. Needle was removed and sterile ba ndage was applied. Patient tolerated the procedure well and had no complications. Condition at Discharge: Condition at Discharge: Condition at discharge is stable, patient tolerated the procedure well and had no complications. New medication meloxicam 15 mg once daily will be called in again patient was given instruction as well as side effects beware with the medication. RAVINDER ARANDA MD Dec 24, 2021 09:01
--- NOTE | 2021-12-24 09:02 | PDOC4 ---
Procedure Note: ICD 10 Code: ICD 10 Code: M2 5.512 M1 9.012 Procedure Note: Patient was consented for left intra-articular shoulder joint injection with fluoroscopic guidance. Risks discussed included but not limited to bleeding infection possibility of intravascular injection sequelae spread local anesthetic numbness side effects of steroid medication portals regarding pain control. Patient understands and wished to proceed. Patient supine position under sterile prep and drape using C-arm fluoroscopic guidance patient's left shoulder was visualized and using 25-gauge needle 1% lidocaine was used to topically anesthetized area over the glenohumeral joint on the left. Using a 22-gauge Quincke needle with stylette the joint was entered under direct fluoroscopic visualization without difficulty stylet was removed at this time 2 cc of contrast was injected with good intra-articular spread in the shoulder joint without uptake. At this time 3 cc of 0.25% bupivacaine and 80 mg Depo-Medrol was then injected into the joint. Needle was removed and sterile bandage was applied. Patient tolerated the procedure well and had no complications. RAVINDER ARANDA MD Dec 24, 2021 09:02
== END | disposition home or self-care (01) ==
LOC: PNCL 08:12
PROVIDERS: ATTEND Anesthesiology
DX: M19.012 Primary osteoarthritis, left shoulder (principal); Z79.84 Long term (current) use of oral hypoglycemic drugs; Z79.899 Other long term (current) drug therapy
CPT/HCPCS: 20610; 77002; J1040; J3490